=== PATIENT | female | born 2000 | race Caucasian/White ===

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

== ENCOUNTER 2018-08-22 11:03 | Emergency (ER) | payer OTHER ==
--- NOTE | 2018-08-22 12:30 | EDPHY ---
H & P Stated Complaint: Increasing right low back pain for 1 month. Time Seen by Provider: 08/22/18 12:30 HPI/ROS: HPI: This is a 18-year-old female presents with Chief Complaint: Lower back pain and right radiculopathy x1 month Location: Lower back Quality: Pain and radiculopathy Duration: 1 month Signs and Symptoms: No bleeding, + radiation, no numbness, no weakness, no tingling, no incontinence, + decreased range of motion, no swelling, + pain, no fever Timing: Worsening Severity: Moderate to severe Context: Patient presents from [facility] with complaints of lower back pain for the last 1 month with new right radiculopathy down right posterior thigh for the last several days. She has been seen at the [facility] and had x-rays that per patient were normal." She was placed on 5 days of steroids on day 3 without improvement. Denies change in bowel or bladder habits. She reports that she has had no injury or trauma. 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 Denies burning with urination, fever, vaginal discharge, vaginal bleeding, abdominal pain, nausea, vomiting. She was also called another 5 days of prednisone today as well as Percocet. Modifying Factors: See above Comment: ROS: A comprehensive 10 system review of systems is otherwise negative aside from elements mentioned in the history of present illness. MEDICAL/SURGICAL/SOCIAL HISTORY: Medical history: Generally healthy. Does not take any regular medications. LMP 3-4 weeks ago. Surgical history: Denies Social history: Student at [employer]. Former smoker. CONSTITUTIONAL: Tearful, mild distress, young adult white female, friend at bedside eating [employer], awake and alert HEENT: Atraumatic and normocephalic. NECK: supple, no midline tenderness, flexion 45 degrees, extension 45 degrees, right and left lateral flexion 45 degrees. Cardiovascular: Normal S1/S2, regular rate, regular rhythm, without murmur rub or gallop. PULMONARY/CHEST: Symmetrical and nontender. no crepitus. Clear to auscultation bilaterally. Good air movement. No accessory muscle usage. ABDOMEN: Soft, nondistended, nontender, no ecchymosis. PELVIC: no pain with rocking; bilateral hips flexion 125 degrees, extension 30 degrees, with no pain internal rotation and no pain external rotation. BACK: No midline tenderness, moderate paraspinous reproducible lumbar tenderness; no paraspinous spasm, deep tendon reflexes 2/2, mild pain with right straight leg raise, no pain with left straight leg raise, No foot drop. Achilles reflexes are equal bilaterally. Able to walk with slow gait. EXTREMITIES: 2/2 pulses, strength 5/5, DIP/PIP/MCP flexion/extension intact with good light touch sensation. no deformities, no clubbing, no cyanosis or edema. NEUROLOGICAL: no focal neuro deficits. GCS 15. Light touch sensation intact. SKIN: Warm and dry, no erythema. no rash. Good capillary refill. Source: Patient, RN/MD Exam Limitations: No limitations - Personal History Current Tetanus Diphtheria and Acellular Pertussis (TDAP): Yes - Medical/Surgical History Hx Asthma: No Hx Chronic Respiratory Disease: No Hx Diabetes: No Hx Cardiac Disease: No Hx Renal Disease: No Hx Cirrhosis: No Hx Alcoholism: No Hx HIV/AIDS: No Hx Splenectomy or Spleen Trauma: No Other PMH: Denies. - Social History Smoking Status: Former smoker Constitutional: Initial Vital Signs Temperature (C) 37.2 C 08/22/18 11:09 Respiratory Rate 16 08/22/18 11:09 Blood Pressure 108/83 H 08/22/18 11:09 O2 Delivery Mode Room Air Allergies/Adverse Reactions: Beef Containing Products Allergy (Verified 10/01/17 01:55) Pork/Porcine Containing Products [pork] Allergy (Verified 10/01/17 01:55) beef Allergy (Uncoded 10/01/17 01:55) Home Medications: Medication Instructions Recorded Diazepam [Valium 2 MG (*)] 2 mg PO Q8 PRN #6 tab 08/22/18 Medical Decision Making - Diagnostics Imaging Results: Imaging Impressions Lumbar Spine MRI 08/22/18 12:37 Impression: 1. L4-L5: Small left paramedian disk herniation resulting in mild central canal stenosis, mild left lateral recess stenosis, and slight dorsal displacement of the left L5 nerve root. 2. L5-S1: Small subligamentous central disk herniation, without stenosis. 3. Please see above findings at specific disk levels. Findings and recommendations discussed with Emergency Department physician, Lori Otto PA-C, at 1437 hours, on August 22, 2018. Final report concurs with initial preliminary interpretation. ED Course/Re-evaluation: Vital signs reviewed and stable upon arrival. MRI lumbar spine ordered Patient given p.o. Tylenol 1000 mg, ibuprofen 600 mg, PO Valium 5 mg, p.o. Decadron 10 mg 1435: Reassessed patient who reports moderate relief of symptoms. Eating food at bedside with friends. 1443: Called by radiologist who advised that lumbar MRI shows L4-L5 mild disc herniation with mild stenosis and L5-S1 mild disc herniation with no stenosis Patient already has a prescription for Medrol Dosepak and Percocet. Will give her prescription for Valium and Neurosurgery referral Ambulatory at discharge without deficits. No signs of neurovascular compromise/tenting of skin/compartment syndrome/ extremities and joints examined above and below area of concern and are neurovascularly intact/cauda equina syndrome/saddle anesthesia. This patient was seen under the supervision of my secondary supervising physician. I evaluated care for this patient with attending. Differential Diagnosis: Back pain including but not limited to muscular pain, herniated disc, spine fracture, intra-abdominal causes and urinary tract infection. - Data Points Medications Given: Discontinued Medications Acetaminophen (Tylenol) 1,000 mg PO EDNOW ONE Stop: 08/22/18 12:39 Last Admin: 08/22/18 12:55 Dose: 1,000 mg Dexamethasone (Decadron) 10 mg PO EDNOW ONE Stop: 08/22/18 12:39 Last Admin: 08/22/18 12:56 Dose: 10 mg Diazepam (Valium) 5 mg PO EDNOW ONE Stop: 08/22/18 12:39 Last Admin: 08/22/18 12:57 Dose: 5 mg Ibuprofen (Motrin) 600 mg PO EDNOW ONE Stop: 08/22/18 12:39 Last Admin: 08/22/18 12:58 Dose: Not Given Departure - Departure Disposition: Home, Routine, Self-Care Clinical Impression: Herniation of intervertebral disc between L4 and L5 Condition: Good Instructions: Lumbar Disc Herniation (ED) Additional Instructions: Avoid any heavy lifting or bending activities until pain free. Continue to take Medrol Dosepak and till complete. Take Tylenol 650 mg every 4 hours and/or Ibuprofen 600 mg every 8 hours with food as needed for pain. Use Percocet every 6 hours as needed for severe/break through pain. Do not use Tylenol and Percocet concomitantly. Use Valium every 8 hr as needed for muscle spasms. Do not take Percocet and Valium together. Follow up with Neurosurgery in 7-10 days if symptoms persist at which time they will evaluate and recommend with you if conservative management versus further therapy is indicated. Referrals: Hany Nguyen MD [Medical Doctor] - As per Instructions Stand Alone Forms: School Excuse Prescriptions: Diazepam [Valium 2 MG (*)] 2 mg PO Q8 PRN #6 tab PRN Reason: Spasms
[2018-08-22] MEDS ORDERED: DEXAMETHASONE 4 MG TAB PO ONE (12:38)
[2018-08-22] MEDS ORDERED: IBUPROFEN 600 MG TAB PO ONE (12:38)
[2018-08-22] MEDS ORDERED: ACETAMINOPHEN 500 MG TAB PO ONE (12:38)
[2018-08-22] MEDS ORDERED: DIAZEPAM 5 MG TAB PO ONE (12:38)
[2018-08-22 15:18] VITALS: BP 123/71
== END 2018-08-22 15:15 | disposition home or self-care (01) ==
DX: M54.9 Dorsalgia, unspecified (principal); M51.86 Other intervertebral disc disorders, lumbar region

== ENCOUNTER 2018-10-26 12:09 | Emergency (ER) | payer OTHER ==
[2018-10-26] MEDS ORDERED: LIDOCAINE 4%/MENTHOL 1% PATCH TD ONE (12:30)
[2018-10-26] MEDS ORDERED: DEXAMETHASONE 4 MG/ML VIAL IVP ONE (12:30)
[2018-10-26] MEDS ORDERED: DIAZEPAM 10 MG/2 ML SYR IVP ONE (12:30)
--- NOTE | 2018-10-26 12:32 | EDPHY ---
H & P Stated Complaint: Hx herniated discs, MRI 08/27, cortizone 10/03, pain and R leg deficit Time Seen by Provider: 10/26/18 12:22 Source: Patient Exam Limitations: No limitations - Personal History Current Tetanus/Diphtheria Vaccine: Yes - Medical/Surgical History Hx Asthma: No Hx Chronic Respiratory Disease: No Hx Diabetes: No Hx Cardiac Disease: No Hx Renal Disease: No Hx Cirrhosis: No Hx Alcoholism: No Hx HIV/AIDS: No Hx Splenectomy or Spleen Trauma: No Other PMH: Herniated L4-L5 - Family History Significant Family History: No pertinent family hx - Social History Smoking Status: Former smoker Alcohol Use: Sober Drug Use: None Constitutional: Initial Vital Signs Temperature (C) 36.4 C 10/26/18 12:13 Heart Rate 80 10/26/18 12:13 Respiratory Rate 24 H 10/26/18 12:13 Blood Pressure 144/79 H 10/26/18 12:13 O2 Sat (%) 94 10/26/18 12:13 O2 Delivery Mode Room Air Allergies/Adverse Reactions: Beef Containing Products Allergy (Verified 10/26/18 12:13) Pork/Porcine Containing Products [pork] Allergy (Verified 10/26/18 12:13) beef Allergy (Uncoded 10/01/17 01:55) Home Medications: Medication Instructions Recorded Diazepam [Valium 2 MG (*)] 2 mg PO Q8 PRN #6 tab 08/22/18 Departure - Departure Condition: Fair Referrals: NONE *PRIMARY CARE P,. [Primary Care Provider] - As per Instructions
--- NOTE | 2018-10-26 12:44 | EDPHY ---
H & P Stated Complaint: Hx herniated discs, MRI 08/27, cortizone 10/03, pain and R leg deficit Time Seen by Provider: 10/26/18 12:22 HPI/ROS: CHIEF COMPLAINT: Right leg pain and numbness HISTORY OF PRESENT ILLNESS: Patient is a 18-year-old female with a history of L4-5 herniation with persistent sciatic on the right side. She states that over last air to her pain has increased significantly. She has also noticed some tingling and numbness to her right leg and feels like it is weak and painful when she tries to ambulate. No bowel or bladder abnormalities. No recent fevers or infections. No recent trauma. She had an MRI in August that revealed a herniation. Since then she has received 2 cortisone injections. She states that the 1st 1 helped significantly but the most recent one 3 weeks ago did not. She states that her pain is so bad that she cannot walk. She is seen by veterans' coordinator and has not yet been evaluated by Neurosurgery. Her pain begins in her right gluteus and radiates down her leg. No mid back pain. She initially presented to the [facility] clinic who called a cab to sent her here. Severity: Severe Modifying factors: Worse with weight REVIEW OF SYSTEMS: Constitutional: denies: chills, fever, recent illness, recent injury EENTM: denies: blurred vision, double vision, nose congestion Respiratory: denies: cough, shortness of breath Cardiac: denies: chest pain, irregular heart rate, lightheadedness, palpitations Gastrointestinal/Abdominal: denies: abdominal pain, diarrhea, nausea, vomiting, blood streaked stools Genitourinary: denies: dysuria, frequency, hematuria, pain Musculoskeletal: See HPI Skin: denies: lesions, rash, jaundice, bruising Neurological: denies: headache, numbness, paresthesia, tingling, dizziness, weakness Hematologic/Lymphatic: denies: blood clots, easy bleeding, easy bruising Immunologic/allergic: denies: HIV/AIDS, transplant 10 systems reviewed and negative except as noted EXAM: GENERAL: Well-appearing, well-nourished and in no acute distress. HEAD: Atraumatic, normocephalic. EYES: Pupils equal round and reactive to light, extraocular movements intact, sclera anicteric, conjunctiva are normal. ENT: TMs normal, nares patent, oropharynx clear without exudates. Moist mucous membranes. NECK: Normal range of motion, supple without lymphadenopathy or JVD. LUNGS: Breath sounds clear to auscultation bilaterally and equal. No wheezes rales or rhonchi. HEART: Regular rate and rhythm without murmurs, rubs or gallops. ABDOMEN: Soft, nontender, normoactive bowel sounds. No guarding, no rebound. No masses appreciated. BACK: No mid back pain or CVA tenderness, no spinal tenderness, step-offs or deformities she does have right gluteal pain nontender EXTREMITIES: Pain to right gluteus radiating down back and side of right leg. Normal movement and strength in bed but significant pain and patient perceived weakness with weight-bearing or ambulation. NEUROLOGICAL: Cranial nerves II through XII grossly intact. Normal speech, painful gait. 5/5 strength, normal movement in all extremities, normal sensation, normal reflexes, subjective sensation changes on the right leg compared to the left up to the waist. No objective weakness or deficits. PSYCH: Normal mood, normal affect. SKIN: Warm, dry, normal turgor, no visible rashes or lesions. Source: Patient Exam Limitations: No limitations - Personal History Current Tetanus/Diphtheria Vaccine: Yes - Medical/Surgical History Hx Asthma: No Hx Chronic Respiratory Disease: No Hx Diabetes: No Hx Cardiac Disease: No Hx Renal Disease: No Hx Cirrhosis: No Hx Alcoholism: No Hx HIV/AIDS: No Hx Splenectomy or Spleen Trauma: No Other PMH: Herniated L4-L5 - Family History Significant Family History: No pertinent family hx - Social History Smoking Status: Former smoker Alcohol Use: Sober Drug Use: None Constitutional: Initial Vital Signs Temperature (C) 36.4 C 10/26/18 12:13 Heart Rate 80 10/26/18 12:13 Respiratory Rate 24 H 10/26/18 12:13 Blood Pressure 144/79 H 10/26/18 12:13 O2 Sat (%) 94 10/26/18 12:13 O2 Delivery Mode Room Air Allergies/Adverse Reactions: Beef Containing Products Allergy (Verified 10/26/18 12:13) Pork/Porcine Containing Products [pork] Allergy (Verified 10/26/18 12:13) beef Allergy (Uncoded 10/01/17 01:55) Home Medications: Medication Instructions Recorded Diazepam [Valium 2 MG (*)] 2 mg PO Q8 PRN #6 tab 08/22/18 Diazepam [Valium 5 MG (*)] 5 mg PO TID PRN #15 tab 10/26/18 methylPREDNISolone [Medrol Dose 1 each PO AD #1 ea 10/26/18 Jason] Medical Decision Making - Diagnostics Imaging: Discussed imaging studies w/ [employer] consultant Radiologist ED Course/Re-evaluation: Will treat the patient with nonnarcotic pain medications. She is requesting an MRI which I agree is reasonable since she is having subjective weakness and numbness. 1:55 p.m. we discussed the MRI results. Patient is feeling better. She will follow up with her physical medicine doctor and I will also refer her to Neurosurgery. I will give her a steroid Dosepak as well as Valium. She is happy with this plan and declines further workup or testing at this time. Differential Diagnosis: Partial list of the Differential diagnosis considered include but were not limited to; radiculopathy, cauda equina, fracture and although unlikely based on the history and physical exam, I also considered tumor, infection, diskitis. I discussed these differential diagnoses and the plan with the patient as well as the usual and expected course. The patient understands that the diagnosis is provisional and that in medicine we are not always correct and that further workup is often warranted. Usual and customary warnings were given. All of the patient's questions were answered. The patient was instructed to return to the emergency department should the symptoms at all worsen or return, otherwise to followup with the physician as we discussed. - Data Points Medications Given: Discontinued Medications Dexamethasone (Decadron Injection) 10 mg IVP EDNOW ONE Stop: 10/26/18 12:31 Last Admin: 10/26/18 13:05 Dose: 10 mg Diazepam (Valium) 5 mg IVP EDNOW ONE Stop: 10/26/18 12:31 Last Admin: 10/26/18 13:04 Dose: 5 mg Miscellaneous Medication (Icy Hot Lidocaine/Menthol 4%/1% Patch) 1 patch TD EDNOW ONE Stop: 10/26/18 12:31 Last Admin: 10/26/18 13:04 Dose: 1 patch Departure - Departure Disposition: Home, Routine, Self-Care Clinical Impression: Sciatica, right side Condition: Fair Instructions: Sciatica (ED) Referrals: Manuelito Silva MD [Medical Doctor] - As per Instructions NONE *PRIMARY CARE P,. [Primary Care Provider] - 5-7 days, call for appt. Prescriptions: Diazepam [Valium 5 MG (*)] 5 mg PO TID PRN #15 tab PRN Reason: Spasms methylPREDNISolone [Medrol Dose Jason] 1 each PO AD #1 ea
[2018-10-26 14:12] VITALS: BP 120/77
[2018-10-26] MEDS ORDERED: PATCH REMOVAL 1 EA PATCH TD SCH (21:00)
== END 2018-10-26 14:11 | disposition home or self-care (01) ==
DX: M54.31 Sciatica, right side (principal); M51.26 Other intervertebral disc displacement, lumbar region; Z87.891 Personal history of nicotine dependence
CPT/HCPCS: 96374; J1100; J3360